=== PATIENT | female | born 1965 | race Caucasian/White ===

== ENCOUNTER → 2018-03-20 10:01 | Outpatient (REF) | payer OTHER, SELFPAY ==
[2018-03-20 10:05] LABS: Adenovirus F 40/41, stool Not Detected (NotDetected); Astrovirus Not Detected (NotDetected); Campylobacter Not Detected (NotDetected); Clostridium Difficile A/B, PCR Not Detected (NotDetected); Cryptosporidium Not Detected (NotDetected); Cyclospora Cayetanesis Not Detected (NotDetected); Entamoeba histolytica Not Detected (NotDetected); Enteroaggregative E coli Not Detected (NotDetected); Enteropathogenic E coli Not Detected (NotDetected); Enterotoxigenic E coli Not Detected (NotDetected); Giardia lamblia Not Detected (NotDetected); Norovirus Not Detected (NotDetected); Plesimonas Shigalloides, PCR Not Detected (NotDetected); Rotavirus A Not Detected (NotDetected); Salmonella, PCR Not Detected (NotDetected); Sapovirus Not Detected (NotDetected); Shiga-like toxin E coli Not Detected (NotDetected); Shigella Enterovasive E coli Not Detected (NotDetected); Vibrio Cholerae Not Detected (NotDetected); Vibrio, PCR Not Detected (NotDetected); Yersinia Entercolitica, PCR Not Detected (NotDetected)
== END ==
LOC: LAB 10:01
PROVIDERS: Visit Provider Surgery
DX: R19.7 Diarrhea, unspecified (principal)
CPT/HCPCS: 87507

== ENCOUNTER → 2018-08-17 15:30 | Outpatient (CLI) | payer BC, SELFPAY ==
--- NOTE | 2018-08-17 15:34 | NVE_ITS ---
Venous Exam Indications: 729.5 Pain in limb. IMPRESSIONS 1. There is no evidence of significant Reflux. 2. No evidence of deep or superficial vein thrombosis involving the left lower extremity Left lower extremity venous duplex evaluation. Doppler flow study including spectral analysis, color and curry scale imaging. Location: Vascular laboratory. Patient status: Outpatient. CRITICAL FINDINGS - Reported to: - Read back and verified. - 08/17/18 - 1600 - NONE Tables: Venous flow and imaging: + +-------+ + Location Overall Flow properties + +-------+ + Left common femoral Patent Normal phasicity; spontaneous; normal augmentation; compressible + +-------+ + Left saphenofemoral junction Patent Compressible + +-------+ + Left profunda femoral Patent Compressible + +-------+ + Left femoral Patent Normal phasicity; spontaneous; normal augmentation; compressible + +-------+ + Left greater saphenous Patent Normal phasicity; spontaneous; normal augmentation; compressible + +-------+ + Left popliteal Patent Normal phasicity; spontaneous; normal augmentation; compressible + +-------+ + Left posterior tibial Patent Compressible + +-------+ + Left peroneal Patent Compressible + +-------+ + Left gastrocnemius Patent Compressible + +-------+ + Left soleal Patent Compressible + +-------+ + (Report amended ) Electronically signed by: Reji Woods [id number]
== END ==
PROVIDERS: PCP Family Medicine; Visit Provider Family Medicine
DX: M79.605 Pain in left leg (principal)
CPT/HCPCS: 93971

== ENCOUNTER → 2019-02-01 09:16 | Outpatient (CLI) | payer BC, SELFPAY ==
--- NOTE | 2019-02-01 09:23 | US_ITS ---
US thyroid HISTORY: ITS.REASON: ENLARGED THYROID,GOITER ORDERING PHYSICIAN: Carla Hoover MD PATIENT AGE: 53 years Comparison: 02/18/2011 FINDINGS: The right lobe measures 4.4 x 1.1 x 2.1 cm. There is a 7 x 4 mm mid polar nodule which does appear solid and slightly hypoechoic but appears well-defined not readily apparent on the previous exam. There is a 5 mm isoechoic nodule in the lower pole laterally not significant changed in size. Previously the nodule wall is more hypoechoic. The left lobe is 4.4 x 1.5 x 1.5 cm. No discrete nodule demonstrated. IMPRESSION: Mildly enlarged thyroid gland. On the right there is a 7 x 4 mm hypoechoic nodule which has developed in the interval. Recommend continued follow-up to confirm stability
== END ==
PROVIDERS: PCP Family Medicine; Visit Provider Family Medicine
DX: E04.9 Nontoxic goiter, unspecified (principal)
CPT/HCPCS: 76536

== ENCOUNTER → 2019-08-22 12:42 | Outpatient (CLI) | payer BC, SELFPAY ==
--- NOTE | 2019-08-22 12:43 | US_ITS ---
PROCEDURE: US THYROID CLINICAL INDICATION: see diagnosis Follow-up thyroid nodules COMPARISON: THY US thyroid from 02/01/2019 FINDINGS: Right lobe: 4.6 x 1.3 x 1.4 cm 3 mm partially cystic nodule upper pole unchanged 7 mm solid-appearing nodule mid polar region unchanged 6 mm isoechoic nodule lower pole unchanged Left lobe: 4.5 x 1.2 x 1.5 cm 4 mm mixed nodule upper pole not readily demonstrated on the previous exam. 6 mm isoechoic area in the lower pole also not demonstrated on the previous study. Isthmus: Slightly thickened at 4 mm Additional findings: None IMPRESSION: There is enlargement of the thyroid gland on both sides. There are multiple benign-appearing nodules. These are unchanged on the right. There are 2 new nodular areas on the left not previously demonstrated. These may not have been seen due to technical factors or could have developed in the interval. Continued follow-up recommended Dictated by: Reji Woods MD 08/24/2019 09:40 Electronically signed by Reji Woods MD in [place] 08/24/2019 09:40
== END ==
PROVIDERS: PCP Family Medicine; Visit Provider Otolaryngology
DX: E04.9 Nontoxic goiter, unspecified (principal); E06.9 Thyroiditis, unspecified
CPT/HCPCS: 76536

== ENCOUNTER → 2019-08-29 15:38 | Outpatient (CLI) | payer BC, SELFPAY ==
[2019-08-29 17:25] LABS: Free T4 (Free Thyroxine) 1.03 ng/dl (0.76-1.46); Thyroid Stimulating Hormone 0.88 uIU/ml (0.358-3.740)
[2019-09-01 17:05] LABS: Thyroid Peroxidase Antibodies 6 IU/mL (0-34)
[2019-09-02 06:36] LABS: Thyroid Stimulating Immunoglob <0.10 IU/L (0.00-0.55)
== END ==
PROVIDERS: Visit Provider Otolaryngology
DX: E04.9 Nontoxic goiter, unspecified (principal); E06.9 Thyroiditis, unspecified
CPT/HCPCS: 36415; 84439; 84443; 84445; 86376

== ENCOUNTER → 2019-12-15 15:06 | Outpatient (CLI) | payer BC, SELFPAY ==
--- NOTE | 2019-12-15 15:10 | XR_ITS ---
PROCEDURE: XR LUMBAR SPINE MIN 4V CLINICAL INDICATION: LBP Right-sided low back pain COMPARISON: ABDPELWO CT abdomen pelvis wo con from 03/26/2018 FINDINGS: There is minimal lumbar curvature convex right. There is mild degenerative disc disease from L2-S1. No fracture or dislocation. There are mild facet arthritic changes at L5-S1. IMPRESSION: Degenerative changes as described above Dictated by: Reji Woods MD 12/15/2019 16:22 Electronically signed by Reji Woods MD in [place] 12/15/2019 16:22
== END ==
PROVIDERS: PCP Family Medicine; Visit Provider Nurse Practitioner Family
DX: M54.5 Low back pain (principal)
CPT/HCPCS: 72110

== ENCOUNTER → 2020-03-07 14:20 | Outpatient (CLI) | payer BC, SELFPAY ==
--- NOTE | 2020-03-07 14:21 | US_ITS ---
PROCEDURE: US THYROID CLINICAL INDICATION: thyroid nodule Follow-up thyroid nodule COMPARISON: US THYROID from 08/22/2019 FINDINGS: Right lobe: 4.1 x 1.4 x 2.1 cm. Stable 3 mm hypoechoic nodule upper pole, isoechoic 6 mm nodule mid pole laterally not significantly changed. Hypoechoic 7 mm nodule lower pole unchanged Left lobe: 4 x 1.5 x 1.5 cm. 5 mm isoechoic nodule upper pole unchanged. 2 mm cyst mid polar region. Previously noted lower pole nodule not apparent on today's exam Isthmus: Unremarkable Additional findings: IMPRESSION: Small bilateral thyroid nodules not significantly changed. Low level of suspicion Dictated by: Reji Woods MD 03/07/2020 15:38 Electronically signed by Reji Woods MD in [place] 03/07/2020 15:38
== END ==
PROVIDERS: PCP Family Medicine; Visit Provider Otolaryngology
DX: E04.1 Nontoxic single thyroid nodule (principal)
CPT/HCPCS: 76536; 88305

== ENCOUNTER → 2020-04-26 09:41 | Outpatient (CLI) | payer BC, SELFPAY ==
--- NOTE | 2020-04-26 09:50 | XR_ITS ---
PROCEDURE: XR LUMBAR SPINE MIN 4V CLINICAL INDICATION: LUMBAGO Low back pain COMPARISON: No exams were available for comparison FINDINGS: There is mild lumbar curvature convex right. Facet arthritic changes are present at from L3-S1. There is mild sclerosis of the SI joints on both sides. There is mild degenerative disc disease at L5-S1. No fracture or dislocation. No lytic blastic change. IMPRESSION: Lumbar spondylosis with facet arthritic change and degenerative disc disease Dictated by: Reji Woods MD 04/26/2020 14:11 Electronically signed by Reji Woods MD in [place] 04/26/2020 14:11
== END ==
PROVIDERS: PCP Family Medicine; Visit Provider Nurse Practitioner Family
DX: M54.40 Lumbago with sciatica, unspecified side (principal)
CPT/HCPCS: 72110

== ENCOUNTER → 2020-09-21 14:10 | Outpatient (CLI) | payer BC, SELFPAY ==
--- NOTE | 2020-09-21 14:10 | US_ITS ---
PROCEDURE: US THYROID CLINICAL INDICATION: thyroid nodule Thyroid sitting COMPARISON: US THY US thyroid from 02/01/2019 US US THYROID from 03/07/2020 FINDINGS: Right lobe: 1.3cm x 4.1cm x 1.9cm Left lobe: 1.1cm x 4.2cm x 1.6cm Isthmus: Unremarkable Additional findings: On the right there are 2 hypoechoic nodules the largest in the mid polar region at 7 x 4 mm not significantly changed. An isoechoic nodule is present in the mid polar region as well at 6 x 3 mm unchanged. On the left, there is a 2 mm hypoechoic nodule in the upper pole and a 3 mm isoechoic nodule in the mid polar region. These are unchanged. There is a 6 mm isoechoic nodule in the lower pole which was not identified previously. IMPRESSION: Bilateral thyroid nodules. A new nodules identified on the left at 6 mm which is mildly suspicious. Recommend continued six-month follow-up. Dictated by: Reji Woods MD 09/22/2020 09:03 Reji Woods MD in [place] 09/22/2020 09:03
[2020-09-21 16:53] LABS: Free T4 (Free Thyroxine) 1.21 ng/dl (0.78-2.19)
[2020-09-21 17:07] LABS: Thyroid Stimulating Hormone 0.74 uIU/mL (0.465-4.68)
[2020-09-23 11:18] LABS: Thyroid Peroxidase Antibodies <9 IU/mL (0-34)
[2020-09-26 10:46] LABS: Thyroid Stimulating Immunoglob <0.10 IU/L (0.00-0.55)
== END ==
PROVIDERS: PCP Family Medicine; Visit Provider Otolaryngology
DX: E04.1 Nontoxic single thyroid nodule (principal); E04.9 Nontoxic goiter, unspecified
CPT/HCPCS: 36415; 76536; 84439; 84443; 84445; 86376

== ENCOUNTER → 2020-10-01 13:09 | Outpatient (CLI) | payer BC, SELFPAY ==
[2020-10-01 14:24] LABS: Alanine Aminotransferase 19 U/L (12-78); Albumin Level 4.3 g/dl (3.5-5.0); Albumin/Globulin Ratio 1.9 (1.1-1.8); Alkaline Phosphatase 64 U/L (38-126); Anion Gap 11.2 mEq/L (5-15); Aspartate Amino Transferase 25 U/L (14-36); Bilirubin,Total 0.2 mg/dl (0.2-1.3); Blood Urea Nitrogen 18 mg/dl (7-17); Calcium 9.5 mg/dl (8.4-10.2); Carbon Dioxide 29 mmol/L (22.0-30.0); Chloride 108 mmol/L (98-107); Estimated Glomerular Filt Rate 58 ml/min (>60); GFR (African American) 70 ML/MIN (>60); Globulin 2.3 g/dL (1.3-3.2); Glucose 138 mg/dl (74-100); Potassium 4.2 mmoL/L (3.5-5.1); Sodium 144 mmol/L (136-145); Total Protein,Serum 6.6 g/dl (6.3-8.2)
== END ==
PROVIDERS: Visit Provider Otolaryngology
DX: E04.9 Nontoxic goiter, unspecified (principal)
CPT/HCPCS: 36415; 80053

== ENCOUNTER → 2020-10-09 09:57 | Outpatient (CLI) | payer BC, SELFPAY ==
--- NOTE | 2020-10-09 09:57 | US_ITS ---
PROCEDURE: US FNA THYROID CLINICAL INDICATION: New left thyroid nodule COMPARISON: US US THYROID from 09/21/2020 TECHNIQUE: Pre biopsy exam confirmed new nodule in the lower pole. Following obtaining informed consent, using aseptic technique and local anesthesia with buffered lidocaine, fine-needle aspiration was performed of the nodule of interest using sonographic guidance. 3 passes were made into the nodule with a 21 gauge needle. Specimen was given to cytology. The patient tolerated the procedure well without evidence of immediate complications and left the ultrasound suite in stable condition. FINDINGS: CYTOLOGY: Negative for malignant cells. Benign follicular nodule IMPRESSION: Uneventful ultrasound-guided fine needle aspiration of the nodule in the lower pole of the left lobe of the thyroid gland showing benign findings. Dictated by: Reji Woods MD 10/26/2020 18:01 Reji Woods MD in [place] 10/26/2020 18:01
== END ==
PROVIDERS: PCP Family Medicine; Visit Provider Otolaryngology
DX: E04.1 Nontoxic single thyroid nodule (principal)
CPT/HCPCS: 10005; 76942

== ENCOUNTER → 2021-04-25 13:40 | Outpatient (CLI) | payer BC, SELFPAY ==
--- NOTE | 2021-04-25 13:40 | US_ITS ---
PROCEDURE: US THYROID CLINICAL INDICATION: THYROID NODULE COMPARISON: US US THYROID from 09/21/2020 US US FNA THYROID from 10/09/2020 FINDINGS: Right lobe: 1.5cm x 3.9cm x 2.0cm. Stable isoechoic nodule mid polar region at 6 mm. Stable hypoechoic nodule in the lower polar region at 7 mm. Left lobe: 1.3cm x 3.9cm x 1.8cm. Stable 7 mm isoechoic nodule lower pole. This was the nodule previously targeted for biopsy. Stable 3 mm hypoechoic nodule upper pole Isthmus: Unremarkable Additional findings: IMPRESSION: Stable bilateral thyroid nodules. Dictated by: Reji Woods MD 04/26/2021 08:54 Reji Woods MD in [place] 04/26/2021 08:54
== END ==
LOC: RAD 13:40
PROVIDERS: PCP Family Medicine; Visit Provider Otolaryngology
DX: E04.1 Nontoxic single thyroid nodule (principal)
CPT/HCPCS: 76536

== ENCOUNTER → 2021-06-21 15:16 | Outpatient (CLI) | payer BC, SELFPAY ==
[2021-06-21 15:58] LABS: Basophils # 0.1 K/mm3 (0-0.2); Basophils % 0.8 % (0.1-2.0); Eosinophils # 0.2 K/mm3 (0.0-0.4); Eosinophils % 3.2 % (0.1-12.0); Hematocrit 44.9 % (37.0-47.0); Hemoglobin 14.8 g/dL (12.2-16.2); Lymphocytes % 30.4 % (10-50); Mean Corpuscular Hemoglobin 28.2 pg (27.0-31.2); Mean Corpuscular Volume 85.3 fl (81-99); Mean Platelet Volume 7.4 fl (7.4-10.4); Monocytes # 0.4 K/mm3 (0.1-1.0); Monocytes % 6.1 % (1.7-9.3); Neutrophils # 3.8 K/mm3 (1.8-7.8); Neutrophils % 59.5 % (37.0-80.0); Platelet Count 278 K/mm3 (142-424); Red Blood Count 5.27 M/mm3 (4.20-5.40); Red Cell Distribution Width 14.1 % (11.5-17.5); White Blood Count 6.4 K/mm3 (4.8-10.8)
[2021-06-21 16:03] LABS: Chloride 107 mmol/L (98-107); Sodium 142 mmol/L (136-145)
[2021-06-21 16:06] LABS: Alanine Aminotransferase 28 U/L (12-78); Alkaline Phosphatase 87 U/L (38-126); Aspartate Amino Transferase 36 U/L (14-36); Bilirubin,Total 0.4 mg/dl (0.2-1.3); Blood Urea Nitrogen 15 mg/dl (7-17); Carbon Dioxide 24 mmol/L (22.0-30.0); Estimated Glomerular Filt Rate 74 ml/min (>60); GFR (African American) 90 ML/MIN (>60)
[2021-06-21 16:07] LABS: Albumin Level 4.4 g/dl (3.5-5.0); Albumin/Globulin Ratio 1.9 (1.1-1.8); Calcium 9.1 mg/dl (8.4-10.2); Globulin 2.3 g/dL (1.3-3.2); Glucose 113 mg/dl (74-100); Total Protein,Serum 6.7 g/dl (6.3-8.2)
== END ==
LOC: LAB 15:17
PROVIDERS: Visit Provider Nurse Practitioner Family
DX: R19.7 Diarrhea, unspecified (principal); R50.9 Fever, unspecified
CPT/HCPCS: 36415; 80053; 85025

== ENCOUNTER → 2021-06-22 09:41 | Outpatient (CLI) | payer BC, SELFPAY ==
[2021-06-22 09:43] LABS: Adenovirus F 40/41, stool Not Detected (NotDetected); Campylobacter Not Detected (NotDetected); Clostridium Difficile A/B, PCR Not Detected (NotDetected); Cryptosporidium Not Detected (NotDetected); Cyclospora Cayetanesis Not Detected (NotDetected); Entamoeba histolytica Not Detected (NotDetected); Enteroaggregative E coli Not Detected (NotDetected); Enteropathogenic E coli Not Detected (NotDetected); Enterotoxigenic E coli Not Detected (NotDetected); Giardia lamblia Not Detected (NotDetected); Norovirus Not Detected (NotDetected); Plesimonas Shigalloides, PCR Not Detected (NotDetected); Rotavirus A Not Detected (NotDetected); Salmonella, PCR Not Detected (NotDetected); Sapovirus Not Detected (NotDetected); Shiga-like toxin E coli Not Detected (NotDetected); Shigella Enterovasive E coli Not Detected (NotDetected); Vibrio Cholerae Not Detected (NotDetected); Vibrio, PCR Not Detected (NotDetected); Yersinia Entercolitica, PCR Not Detected (NotDetected)
[2021-06-22 12:32] LABS: Astrovirus Detected (NotDetected)
== END ==
LOC: LAB.DROPOF 09:41
PROVIDERS: Visit Provider Nurse Practitioner Family
DX: R19.7 Diarrhea, unspecified (principal); R50.9 Fever, unspecified; A08.32 Astrovirus enteritis
CPT/HCPCS: 87507

== ENCOUNTER → 2021-11-01 12:53 | Outpatient (CLI) | payer BC, SELFPAY ==
--- NOTE | 2021-11-01 12:54 | US_ITS ---
PROCEDURE: US THYROID CLINICAL INDICATION: thyroid nodule COMPARISON: US US THYROID from 04/25/2021 FINDINGS: Right lobe: 4.3 x 1.3 x 1.6 cm. 3 mm hypoechoic nodule upper pole stable. 4 mm hypoechoic nodule lower pole is smaller previously 7 x 8 mm. Left lobe: 4.4 x 1.3 x 1.9 cm. 2 mm hypoechoic nodule upper pole slightly smaller previously 4 x 2 mm. 3 mm hypoechoic nodule mid polar region unchanged. 8 x 5 mm slightly hypoechoic nodule lower pole unchanged Isthmus: Unremarkable Additional findings: IMPRESSION: Stable bilateral thyroid nodules Dictated by: Reji Woods MD 11/01/2021 17:29 Reji Woods MD in [place] 11/01/2021 17:29
== END ==
LOC: RAD 12:54
PROVIDERS: PCP Family Medicine; Visit Provider Otolaryngology
DX: E04.1 Nontoxic single thyroid nodule (principal)
CPT/HCPCS: 76536

== ENCOUNTER → 2021-11-15 09:41 | Outpatient (CLI) | payer BC, SELFPAY ==
--- NOTE | 2021-11-15 09:41 | FL_ITS ---
PROCEDURE: FL BARIUM SWALLOW CLINICAL INDICATION: dysphagia COMPARISON: No exams were available for comparison TECHNIQUE: In the upright position the patient was observed to swallow barium in both the AP and lateral view. The cervical esophagus was examined under fluoroscopy with images obtained. The patient was then placed prone in the right anterior oblique position and was observed to swallow barium with Valsalva technique . FLUOROSCOPY TIME: 0.4 minutes FINDINGS: There was no evidence of aspiration. There was normal peristalsis. No filling defects or mucosal abnormalities. No masses or strictures. IMPRESSION: Negative barium swallow. Dictated by: Reji Woods MD 11/15/2021 13:06 Reji Woods MD in [place] 11/15/2021 13:06
== END ==
LOC: RAD 09:41
PROVIDERS: PCP Family Medicine; Visit Provider Student in an Organized Health Care Education/Training Program
DX: R13.10 Dysphagia, unspecified (principal); E04.1 Nontoxic single thyroid nodule
CPT/HCPCS: 74220

== ENCOUNTER 2022-01-26 09:11 | Emergency (ER) | payer BC, SELFPAY ==
[2022-01-26 09:12] VITALS: BP 161/90; PULSE 85; RESP 16; TEMP 36.4; O2SAT 98; BMI 32.9
--- NOTE | 2022-01-26 09:57 | HMH.EDGENADL ---
ED Disposition Clinical Impression: Lumbar radiculopathy, Spinal stenosis Disposition: Home, Self-Care Condition on Discharge: Fair Instructions: DI for Acute Pain -- Adult Prescriptions: Gabapentin 300 mg PO BID 3 Days #6 cap Transmission Status: Sent to [facility] predniSONE [Prednisone 20mg Tab] 20 mg PO DIRECTED 8 Days #15 tab Transmission Status: Pending to [facility] Referrals: Carla Hoover MD [Primary Care Provider] - - Critical Care Critical Care Time: No Attestation: On 01/26/22, the high probability of a clinically significant, sudden or life threatening deterioration of the following system(s) required my full and direct attention, intervention and personal management. The time I documented below is in addition to time spent performing reported procedures but includes the following listed in this critical care notation. Medical Decision Making - Bry Inquiry Pt receiving controlled substance: No Vital Signs: 01/26/22 09:12 01/26/22 10:28 Temperature 97.6 F Temperature Source Oral Pulse Rate 65 Pulse Rate [Radial] 85 Respiratory Rate 16 Blood Pressure 170/91 H Blood Pressure [Right Arm] 161/90 H Blood Pressure Mean 115 Blood Pressure Mean [Right Arm] 113 Blood Pressure Position [Right Arm] Sitting 02 Sat by Pulse Oximetry 98 100 Oxygen Delivery Method Room Air Orders (Tests/Meds): ED MEDICATIONS Generic Name Dose Route Start Last Admin Trade Name Freq PRN Reason Stop Dose Admin Methocarbamol 500 mg 01/26/22 10:00 01/26/22 09:56 Methocarbamol 500mg Tablet PO 02/25/22 09:59 500 mg BID CHARLEE Administration Oxycodone HCl 5 mg 01/26/22 10:40 01/26/22 10:47 Oxycodone 5mg Immediate Release Tablet PO 02/25/22 10:39 5 mg Q4HP PRN Administration Severe Pain Discontinued Medications Generic Name Dose Route Start Last Admin Trade Name Freq PRN Reason Stop Dose Admin Acetaminophen 1,000 mg 01/26/22 09:53 01/26/22 09:56 Acetaminophen 500mg Tab PO 01/26/22 09:54 1,000 mg ONCE ONE Administration Gabapentin 300 mg 01/26/22 09:52 01/26/22 09:56 Gabapentin 300mg Capsule PO 01/26/22 09:53 300 mg ONCE ONE Administration Ketorolac Tromethamine 15 mg 01/26/22 09:53 01/26/22 09:56 Ketorolac 30mg/Ml Vial IM 01/26/22 09:54 15 mg ONCE ONE Administration Lidocaine 1 each 01/26/22 09:53 01/26/22 09:56 Lidocaine 5% Transdermal Patch TP 01/26/22 09:54 1 each ONCE ONE Administration Ondansetron HCl 4 mg 01/26/22 10:02 01/26/22 10:02 Ondansetron 4mg Odt SL 01/26/22 10:03 4 mg ONCE ONE Administration Prednisone 60 mg 01/26/22 10:40 01/26/22 10:47 Prednisone 20mg Tab PO 01/26/22 10:41 60 mg ONCE ONE Administration Medical Decision Narrative: Ddx includes but not limited to lumbar radiculopathy, sciatica, muscular strain, herniated disc, spinal stenosis. hds, distress 2/2 pain but intermittently distractable, on room air, afebrile. hypertensive on initial vitals. no acute back pain red flags. hx and physical suggests lumbar radiculopathy, particularly sciatica. will obtain ct l spine. will give analgesics including po tylenol, im toradol, lidocaine patch, po gabapentin, po robaxin in ed. CT lumbar spine with evidence of mild canal stenosis and at least moderate neuroforaminal stenosis bilaterally at L5/S1. Pain improved after initial meds, but worsened after laying down and moving for CT, so also given dose of prednisone and oxycodone here with pain controlled afterwards. will plan for outpt follow up with spine physician which patient states she can make appointment for, pt will also f/u with pcp on this upcoming thursday in 2 days for continued management of chronic pain, pt given rx for prednisone taper and gabapentin. sent to her pharmacy which she states is open today. given strict ed return precautions. General Adult HPI - General Chief complaint: PAIN Stated complaint: rt hi
--- NOTE | 2022-01-26 10:07 | CT_ITS ---
PROCEDURE INFORMATION: Exam: CT Lumbar Spine Without Contrast Exam date and time: 01/26/2022 10:07 AM Age: 56 years old Clinical indication: Low back pain; Additional info: Acute lower back pain, HX herniated disc TECHNIQUE: Imaging protocol: Computed tomography images of the lumbar spine without contrast. Radiation optimization: All CT scans at this facility use at least one of these dose optimization techniques: automated exposure control; mA and/or kV adjustment per patient size (includes targeted exams where dose is matched to clinical indication); or iterative reconstruction. COMPARISON: CR XR LUMBAR SPINE MIN 4V 04/26/2020 9:51 AM FINDINGS: Vertebrae: No acute fracture. Normal alignment. Discs/Spinal canal/Neural foramina: Multilevel degenerative changes contribute to at least mild spinal canal stenosis at L3-L4. There appears to be at least moderate neural foraminal stenosis at L5-S1 bilaterally. Soft tissues: Unremarkable. IMPRESSION: 1. No acute fracture or malalignment. 2. Degenerative changes contribute to at least mild spinal canal stenosis at L3-L4 and at least moderate neural foraminal stenosis at L5-S1 bilaterally.
--- NOTE | 2022-01-26 10:15 | PC.NURSE ---
pt to CT scan
--- NOTE | 2022-01-26 10:22 | PC.NURSE ---
pt back from CT scan
[2022-01-26 10:28] VITALS: BP 170/91; PULSE 65; O2SAT 100
--- NOTE | 2022-01-26 10:50 | PC.NURSE ---
pt is standing up in the room against the wall. Family member at bedside. nothing needed at this time. Awaiting test results.
[2022-01-26 11:29] VITALS: BP 141/99; PULSE 76; RESP 18; TEMP 36.7; O2SAT 97
== END 2022-01-26 11:31 | disposition home or self-care (01) ==
PROVIDERS: Emergency Provider Student in an Organized Health Care Education/Training Program; PCP Family Medicine
DX: M54.16 Radiculopathy, lumbar region (principal); M48.00 Spinal stenosis, site unspecified; E11.9 Type 2 diabetes mellitus without complications; E78.5 Hyperlipidemia, unspecified
CPT/HCPCS: 72131; 96372; 99284

== ENCOUNTER → 2022-02-01 09:15 | Outpatient (CLI) | payer BC, SELFPAY | PROVIDERS: PCP Family Medicine; Visit Provider Surgery | DX: Z01.812 Encounter for preprocedural laboratory examination (principal); Z11.52 Encounter for screening for COVID-19; Z12.11 Encounter for screening for malignant neoplasm of colon; Z86.010 Personal history of colon polyps | CPT/HCPCS: C9803; U0003; U0005 ==

== ENCOUNTER 2022-02-04 06:07 | Day surgery (SDC) | payer BC, SELFPAY ==
[2021-12-19 10:30] VITALS: BMI 32.9
[2022-02-03 10:51] VITALS: BMI 32.9
[2022-02-04 06:46] VITALS: BP 137/78; PULSE 57; RESP 18; TEMP 37.1; O2SAT 99
[2022-02-04 07:34] VITALS: O2SAT 99
--- NOTE | 2022-02-04 07:57 | P.PCN_ITS ---
- Procedure: Date: 02/04/22 Patient Date of :: 1965 Procedure Performed:: Colonoscopy Indications:: History of large complex polyps The patient has a history of large/complex polyps. A very large transverse colon polyp is status post serial resection and tattoo. Her last colonoscopy September 2019 revealed small benign polyps. She does have a history of significant limitations in visualization secondary to bowel preparation and severe sigmoid tortuosity. Performing Provider:: Fabio Hopkins MD Referring Provider:: . Sedation:: Monitored anesthesia care Procedure:: After informed consent was obtained the patient was taken to the endoscopy suite. Sedation ensued after the patient was transferred to the left lateral decubitus position. Pulse, blood pressure, and oxygen saturation were monitored throughout the procedure. Digital rectal exam revealed no significant abnormality. The colonoscope was placed in position. The entire colon was evaluated. The colonoscope was carefully removed and the patient was transferred to recovery in stable condition. Please see findings and specimens below for detail. Findings:: Bowel preparation moderate to poor Hemorrhoidal tags Severe corkscrew tortuosity of sigmoid colon Transverse colon tattoo site appeared relatively normal (given visualization duran itations due to bowel preparation) Specimens:: None Recommendations:: Repeat colonoscopy in 2-3 years with extended bowel preparation. Consider gastroenterology consultation for possible chronic constipation. If gastroenterology consultation completed...defer repeat colonoscopy to the GI service. Complications:: No immediate with the exception of moderate to poor bowel preparation Estimated blood obtained (mL): 0
[2022-02-04 08:00] VITALS: BP 113/56; PULSE 62; RESP 18; TEMP 36.6; O2SAT 98
[2022-02-04 08:10] VITALS: BP 117/61; PULSE 55; RESP 196; O2SAT 98
[2022-02-04 08:20] VITALS: BP 124/72; PULSE 61; RESP 18; O2SAT 98
[2022-02-04 08:30] VITALS: BP 108/46; PULSE 62; RESP 18; O2SAT 98
--- NOTE | 2022-02-04 08:48 | P.PN_ITS ---
[facility] Anesthesia Checklist - Structural Data Admitted From: Home Planned Operative Procedure/s: colonoscopy Consent for Planned Operative Procedure(s) Verified: Yes - Additional verifications Anesthesia Reactions: No - Airway Assessment C-Spine Mobility Assessed: Yes TMJ Mobility Assessed: Yes Dentition: Good Dentition - Neurological Assessment Level of Consciousness: Awake, Alert, Appropriate - Anesthesia Plan Anesthesia Risk discussed: Yes Anesthesia Plan: Verified ASA Class: II Anesthesia Type: MAC [facility] History I have reviewed the patient's past medical history: Yes Medical History: Reports:: Diabetes Mellitus Type 2, Heart Murmur, Hyperlipidemia Denies:: Cancer, Diabetes Mellitus Type 1, Internal Pacemaker, Lung Disease, MRSA, Seizures *Have you ever received a pneumonia vaccine?: No *Have you received a flu vaccine this season?: No Other Medical History: Reports: Other Anesthesia experience/problems:: none Laterality Cases: Bilateral: Carpal Tunnel Release, Tonsillectomy Other Surgeries: Yes: Colonoscopy, EGD, Hysterectomy-Total, Other. No: Pacemaker Amputation: No Fractures: No - *Social History Last grade of school completed: High school graduate Smoking Status: Never smoker Alcohol Intake: never Substance Use Type: denies use *Occupational Status:: employed Housing: house Household Members: spouse, children *Travel in the last 8 weeks: None Family Hx:: Coronary Artery Disease, Heart Attack, Hyperlipidemia, Hypertension
[2022-08-14 10:58] LABS: POC Glucose,Bedside 121 (70-110)
== END 2022-02-04 08:30 | disposition home or self-care (01) ==
LOC: OUTP 06:08
PROVIDERS: PCP Family Medicine; Visit Provider Surgery
PROC: 0DJD8ZZ Inspection of Lower Intestinal Tract, Via Natural or Artificial Opening Endoscopic (ICD-10-PCS; CPT 45378; principal; 2022-02-04 07:30)
DX: Z12.11 Encounter for screening for malignant neoplasm of colon (principal); Z86.010 Personal history of colon polyps; Z90.49 Acquired absence of other specified parts of digestive tract; K64.9 Unspecified hemorrhoids; K56.2 Volvulus; E11.9 Type 2 diabetes mellitus without complications; E78.5 Hyperlipidemia, unspecified; R01.1 Cardiac murmur, unspecified; Z82.3 Family history of stroke; Z83.438 Family history of other disorder of lipoprotein metabolism and other lipidemia; Z82.49 Family history of ischemic heart disease and other diseases of the circulatory system; Z91.040 Latex allergy status
CPT/HCPCS: 45378; 82962

== ENCOUNTER → 2023-03-31 10:12 | Outpatient (POV) | payer BC, SELFPAY | PROVIDERS: Visit Provider Dermatology | DX: Z00.00 Encounter for general adult medical examination without abnormal findings (principal) ==

== ENCOUNTER 2023-04-14 10:28 | Day surgery (SDC) | payer BC, SELFPAY ==
[2023-04-09 11:48] VITALS: BMI 32.4
[2023-04-14 10:45] VITALS: BP 163/81; PULSE 68; RESP 18; TEMP 36.3; O2SAT 96
--- NOTE | 2023-04-14 10:55 | P.PN_ITS ---
[facility] Disclaimer: The information contained in this section may have been updated after the patient was seen, as this information can be updated by other users. Medical History History of skin cancer Skin cancer Surgical History History of hysterectomy History of lumbar surgery History of tubal ligation Family History Other Colon cancer Family history of diabetes mellitus type II Family history of heart disease Family history of myocardial infarction Social History Smoking Status: Never smoker second hand exposure: No alcohol intake: never substance use type: denies use current occupational status: employed Travel in the last 8 weeks: None household members: spouse and children housing: house current occupation: [employer] current occupational exposures/hazards: No caffeine: Yes [facility] Anesthesia Checklist Patient Identification Patient Identification: Arm Band and Verbal (Name & ) Structural Data Admitted From: Home Planned Operative Procedure/s: Colonoscopy Consent for Planned Operative Procedure(s) Verified: Yes NPO Status Verified Time NPO: 00:00 Additional verifications Anesthesia Reactions: No Airway Assessment C-Spine Mobility Assessed: Yes TMJ Mobility Assessed: Yes Dentition: Good Dentition Neurological Assessment Level of Consciousness: Awake Hx Seizures: No Numbness or tingling in extremities: No Anesthesia Plan Anesthesia Risk discussed: Yes Anesthesia Plan: Verified ASA Class: II Anesthesia Type: MAC
--- NOTE | 2023-04-14 10:55 | HMH.SCOPE ---
Procedure: Date: 04/14/23 Patient Date of :: 1965 Procedure Performed:: Colonoscopy Indications:: History of colon polyps Note: A large complex transverse colon polyp status post serial resection/tattoo has been completed over multiple colonoscopies since 2017. Performing Provider:: Fabio Hopkins MD Referring Provider:: . Sedation:: Monitored anesthesia care Procedure:: After informed consent was obtained the patient was taken to the endoscopy suite. Sedation ensued after the patient was transferred to the left lateral decubitus position. Pulse, blood pressure, and oxygen saturation were monitored throughout the procedure. Digital rectal exam revealed no significant abnormality. The colonoscope was placed in position. The entire colon was evaluated. The colonoscope was carefully removed and the patient was transferred to recovery in stable condition. Please see findings and specimens below for detail. Findings:: Bowel preparation moderate Region in/around tattoo appeared normal Specimens:: None Recommendations:: Repeat colonoscopy in 3-5 years Complications:: No immediate Estimated blood obtained (mL): 0
[2023-04-14 10:56] LABS: POC Glucose,Bedside 115 (70-110)
[2023-04-14 11:33] VITALS: BP 116/67; PULSE 66; RESP 18; TEMP 36.3; O2SAT 96
[2023-04-14 11:43] VITALS: BP 124/71; PULSE 82; RESP 18; O2SAT 95
[2023-04-14 11:53] VITALS: BP 139/78; PULSE 52; RESP 18; O2SAT 100
[2023-04-14 12:10] VITALS: BP 154/76; PULSE 50; RESP 18; O2SAT 97
== END 2023-04-14 12:12 | disposition home or self-care (01) ==
PROVIDERS: PCP Family Medicine; Visit Provider Surgery
PROC: 0DJD8ZZ Inspection of Lower Intestinal Tract, Via Natural or Artificial Opening Endoscopic (ICD-10-PCS; CPT 45378; principal; 2023-04-14 11:30)
DX: Z12.11 Encounter for screening for malignant neoplasm of colon (principal); Z86.010 Personal history of colon polyps; Z79.899 Other long term (current) drug therapy
CPT/HCPCS: 45378; 82962; J2704

== ENCOUNTER → 2023-11-13 08:48 | Outpatient (CLI) | payer BC, SELFPAY ==
--- NOTE | 2023-11-13 08:56 | US_ITS ---
FINAL REPORT CLINICAL HISTORY: Abdominal pain and nausea FINDINGS: Ultrasound images of the right upper quadrant were obtained. There is increased echogenicity in the liver consistent with fatty infiltration. The gallbladder is well visualized and the wall appears normal. There are several large gallstones. The common duct is normal. Limited images of the right kidney are unremarkable. IMPRESSION: 1. Cholelithiasis. 2. Fatty liver. Reviewed, Interpreted and Dictated by Adrienne Griffin MD Transcribed by Marguerite García Authenticated and [facility]
== END ==
LOC: RAD 08:49
PROVIDERS: PCP Family Medicine; Visit Provider Family Medicine
DX: R11.0 Nausea (principal); R10.9 Unspecified abdominal pain
CPT/HCPCS: 76705

== ENCOUNTER 2023-12-29 08:54 | Outpatient (CLI) | payer BC, SELFPAY ==
--- NOTE | 2023-12-29 09:07 | MM_ITS ---
PROCEDURE INFORMATION: Exam: Bilateral Screening 3D Mammography Exam date and time: 12/29/2023 8:55 AM Age: 58 years old Clinical indication: Screening. No family history of breast cancer. TECHNIQUE: Imaging protocol: Bilateral Screening tomosynthesis and 2D mammography including computer-aided detection (CAD) when performed. COMPARISON: No relevant prior studies available.If prior mammograms are provided, I am happy to add an addendum. FINDINGS: MAMMOGRAPHY: Breast composition: There are scattered areas of fibroglandular density. Mass: Scattered oval sub cm masses/asymmetries in the right upper outer quadrant middle 3rd and in the left upper outer and upper inner quadrants middle and posterior thirds (on the right, CC frame 29 and MLO 28; on the left CC frame 33 and MLO frame 29). Architectural distortion: None. Calcifications: No suspicious calcifications. Asymmetric density: None. Skin thickening: None. Axillary adenopathy: None. IMPRESSION: Comparison to prior mammogram will be most helpful. If this is not provided within 2 weeks, patient will be recalled for bilateral sonography for further evaluation of bilateral breast masses. ASSESSMENT: BI-RADS Category 0: Incomplete- Need Additional Imaging Evaluation and/or Prior Mammograms for Comparison
== END 2023-12-29 23:59 ==
LOC: RAD 08:54
PROVIDERS: PCP Family Medicine; Visit Provider Family Medicine
DX: Z12.31 Encounter for screening mammogram for malignant neoplasm of breast (principal)
CPT/HCPCS: 77063; 77067